=== PATIENT | female | born 1970 | race Two or more races ===

== ENCOUNTER 2020-11-26 13:45 | Emergency (ER) | payer OTHER ==
[~2020-11-26] VITALS: Ht 142.2 cm; Wt 78.5 kg
--- NOTE | 2020-11-26 14:00 | NUR ---
TO ER BED 4, C/O CHEST PAIN R/T ARM, NECK AND BACK X 45 DAYS, AAOX4, BREATHING EVEN AND UNLABORED, ATTACHED TO MONITOR, EKG AT BEDSIDE
[2020-11-26 15:02] LABS: BASOPHILS # (AUTO) 0.1 K/uL (0.0-0.2); EOSINOPHILS % (AUTO) 0.7 % (0.0-6.0); HEMATOCRIT 40 % (33-45); HEMOGLOBIN 13.4 g/dL (11.5-14.8); LYMPHOCYTES # (AUTO) 2.3 K/uL (0.8-4.8); LYMPHOCYTES % (AUTO) 19.4 % (20.0-44.0); MEAN CORPUSCULAR HGB CONC 34 g/dl (31.0-36.0); MEAN CORPUSCULAR VOLUME 94 fL (82-100); MONOCYTES # (AUTO) 0.5 K/uL (0.1-1.30); NEUTROPHILS % (AUTO) 74.9 % (43.0-81.0); PLATELET COUNT (AUTO) 318 K/uL (150-450); RED BLOOD CELL COUNT(AUTO) 4.22 MIL/uL (4.0-5.2)
[2020-11-26 15:08] LABS: CALCIUM, SERUM 9.1 mg/dL (8.5-10.1); CARBON DIOXIDE 25 mmol/L (21-32); CHLORIDE 103 mmol/L (98-107); CREATININE 0.7 mg/dL (0.6-1.3); GLUCOSE 90 mg/dL (74-106); POTASSIUM 4.3 mmol/L (3.5-5.1); SODIUM SERUM 140 mmol/L (136-145); UREA NITROGEN, BLOOD 18 mg/dL (7-18)
--- NOTE | 2020-11-26 15:11 | NUR ---
INTERDISCIPLINARY PROFESSOR AT BEDSIDE
[2020-11-26] MEDS ORDERED: KETOROLAC TROMETHAMINE INJ 30 MG/ML VIAL IV ONE (16:30)
[2020-11-26] MEDS ORDERED: KETOROLAC TROMETHAMINE 15 MG/ML VIAL ONE (16:55)
--- NOTE | 2020-11-26 17:51 | NUR ---
LAB AT BEDSIDE FOR REPEAT TROPONIN
[2020-11-26] MEDS ORDERED: IBUP-1955 PO (18:39)
[2020-11-26 18:58] VITALS: BP 124/72
== END 2020-11-26 18:59 | disposition home or self-care (01) ==
LOC: ER 13:54
DX: R07.89 Other chest pain (principal); R94.31 Abnormal electrocardiogram [ECG] [EKG]; E05.90 Thyrotoxicosis, unspecified without thyrotoxic crisis or storm; E11.9 Type 2 diabetes mellitus without complications; Z98.890 Other specified postprocedural states; Z90.89 Acquired absence of other organs; Z60.2 Problems related to living alone
CPT/HCPCS: 36415; 71045; 80048; 84443; 84484 ×2; 84703; 85025; 85378; 93005 ×3; 96374; 99285; J1885